=== PATIENT | male | born 1970 | race Caucasian/White ===

== ENCOUNTER 2019-06-21 10:48 | Outpatient (CLI) | payer SELFPAY ==
--- NOTE | 2019-06-21 10:58 | XR_ITS ---
WS: [id number] LATERAL LUMBAR SPINE: 3 view. Lateral radiographs are performed in upright neutral, flexion and extension to the patient's toleranc e. HISTORY: LUMBAR SPONDYLOSIS COMPARISON: 05/11/2018 Prior posterior lumbar fusion with interbody spacer at L3-4. No lucency around the screws or fracture involving the hardware. Mild disc space narrowing at L5-S1. With flexion and extension no instability. XR/XR lumbar spine f/e only [id number] IMPRESSION: 1. No lumbar spine instability. 2. Prior posterior lumbar fusion with interbody spacer at L3-4 with no complic ations.
== END 2019-06-21 10:49 | disposition home or self-care (01) ==
LOC: RAD 10:52
PROVIDERS: Family Provider Nurse Practitioner; PCP Nurse Practitioner; Visit Provider Neurological Surgery
DX: M47.816 Spondylosis without myelopathy or radiculopathy, lumbar region (principal); Z98.1 Arthrodesis status
CPT/HCPCS: 72120

== ENCOUNTER → 2019-07-17 09:39 | Outpatient (BNVA) | payer SELFPAY | PROVIDERS: Family Provider Nurse Practitioner; PCP Nurse Practitioner; Visit Provider Nurse Practitioner | DX: F41.9 Anxiety disorder, unspecified (principal); F32.9 Major depressive disorder, single episode, unspecified; E55.9 Vitamin D deficiency, unspecified | CPT/HCPCS: 80053; 81003 ==

== ENCOUNTER → 2019-10-12 11:39 | Outpatient (BNVA) | payer MEDICAID, SELFPAY | PROVIDERS: Family Provider Nurse Practitioner; PCP Nurse Practitioner; Visit Provider Nurse Practitioner | DX: R19.7 Diarrhea, unspecified (principal) | CPT/HCPCS: 87205; 87506 ==

== ENCOUNTER → 2019-10-15 11:17 | Outpatient (BNVA) | payer MEDICAID, SELFPAY | PROVIDERS: Family Provider Nurse Practitioner; PCP Nurse Practitioner; Visit Provider Nurse Practitioner | DX: R19.7 Diarrhea, unspecified (principal) | CPT/HCPCS: 80053; 85025 ==

== ENCOUNTER 2019-11-01 11:02 | Outpatient (CLI) | payer MEDICAID, SELFPAY ==
--- NOTE | 2019-11-01 10:30 | CT_ITS ---
WS: [id number] CT ABDOMEN PELVIS TECHNIQUE: Noncontrast CT of the abdomen and pelvis with coronal and sagittal reformatted images. CLINICAL INFORMATION: sever abdomen pain COMPARISON: August 05, 2016 DLP: 1162.[address] scans at [facility] use at least one of these dose optimization techniques: automat ed exposure control; mA and/or kV adjustment per patient size (includes targeted exams where dose is matched to clinical indication); or iterative reconstruction. FINDINGS: Noncontrast liver and gallbladder are normal. No evidence of small or large bowel obstruction. Scatte red stool in the colon. Incidental fat-containing umbilical hernia. No periaortic or retroperitoneal lymphadenopathy. No inguinal lymphadenopathy. Pedicle screw fixation L3-4 with interbody fusion. Hardware appears intact. Thoracic spinal stimulato r. Postoperative changes right nephrectomy are new since the prior examination. Nephrectomy bed is no rmal in appearance. Normal right adrenal gland. Normal noncontrast left kidney. Normal left adrenal g land. Normal spleen. Small splenule. Small esophageal hiatal hernia. Lung bases are well aerated. Mild pancreatic atrophy. Screw fixation across the femoral necks bilaterally extending into the acetabulum on the right right. Small scleroti c 5 mm lesion right ileum most consistent with benign bone island stable since 2017 CT/CT abdomen pelvis wo con [id number] IMPRESSION: 1. Postoperative changes right nephrectomy are new since the prior examination . Normal renal fossa. 2. Right adrenal gland is normal. 3. Left kidney is normal in appearance. No hydronephrosis. 4. No retroperitoneal or periotic lymphadenopathy. No inguinal lymphadenopathy . 5. No evidence of metastatic disease. 6. Postoperative changes pedicle screw fixation with interbody fusion at L3-4 new from previous.
== END 2019-11-01 11:03 | disposition home or self-care (01) ==
LOC: RADWPI 11:04
PROVIDERS: Family Provider Nurse Practitioner; PCP Nurse Practitioner; Visit Provider Nurse Practitioner
DX: R10.9 Unspecified abdominal pain (principal); Z90.5 Acquired absence of kidney; M43.26 Fusion of spine, lumbar region
CPT/HCPCS: 74176; 81000; 85025

== ENCOUNTER → 2020-05-13 09:23 | Outpatient (BNVA) | payer MEDICARE, MEDICAID, SELFPAY | PROVIDERS: Family Provider Nurse Practitioner; PCP Nurse Practitioner; Visit Provider Nurse Practitioner | DX: F41.9 Anxiety disorder, unspecified (principal); F32.9 Major depressive disorder, single episode, unspecified; I10 Essential (primary) hypertension | CPT/HCPCS: 80053; 81000 ==

== ENCOUNTER → 2020-06-14 17:55 | Outpatient (BNVA) | payer MEDICARE, MEDICAID, SELFPAY | PROVIDERS: Family Provider Nurse Practitioner; PCP Nurse Practitioner; Visit Provider Nurse Practitioner Family | DX: Z20.828 Contact with and (suspected) exposure to other viral communicable diseases (principal) | CPT/HCPCS: 87635 ==

== ENCOUNTER → 2020-07-14 08:34 | Outpatient (BNVA) | payer MEDICARE, MEDICAID, SELFPAY | PROVIDERS: Family Provider Nurse Practitioner; PCP Nurse Practitioner; Visit Provider Nurse Practitioner | DX: Z11.59 Encounter for screening for other viral diseases (principal); I10 Essential (primary) hypertension | CPT/HCPCS: 86705; 86706; 86709; 86803; 87340 ==

== ENCOUNTER 2020-09-11 08:31 | Outpatient (CLI) | payer MEDICARE, MEDICAID, SELFPAY ==
--- NOTE | 2020-09-11 08:45 | US_ITS ---
WS: [id number] ULTRASOUND RIGHT UPPER QUADRANT CLINICAL INFORMATION: R74.8 - Abnormal levels of other serum enzymes COMPARISON: None. FINDINGS: Liver Size: Upper limits of normal Craniocaudal length: 15.8 cm. Echogenicity: Normal. Surface nodularity: None. Mass (size and location): None. Bile ducts Intrahepatic ducts: Normal. Common bile duct diameter: 0.3 cm. Gallbladder Normal. Gallstones: None. Gallbladder sludge: None. Gallbladder wall thickening: None. Pericholecystic fluid: None. Sonographic Mckeon sign: Absent. Pancreas Normal as visualized. Abdominal aorta and IVC Visualized portions are normal. Ascites: None. US/US liver [id number] IMPRESSION: 1. Liver size upper limits of normal and otherwise normal. 2. Normal gallbladder. 3. Right kidney has been removed.
== END 2020-09-11 08:32 | disposition home or self-care (01) ==
PROVIDERS: PCP Nurse Practitioner; Visit Provider Nurse Practitioner
DX: R74.8 Abnormal levels of other serum enzymes (principal); Z90.5 Acquired absence of kidney
CPT/HCPCS: 76705

== ENCOUNTER → 2020-11-11 16:56 | Outpatient (BNVA) | payer MEDICARE, MEDICAID, SELFPAY | PROVIDERS: PCP Nurse Practitioner; Visit Provider Nurse Practitioner | DX: I10 Essential (primary) hypertension (principal); F41.9 Anxiety disorder, unspecified; F32.9 Major depressive disorder, single episode, unspecified | CPT/HCPCS: 80053; 80061 ==

== ENCOUNTER → 2021-02-25 09:24 | Outpatient (BNVA) | payer MEDICARE, MEDICAID, SELFPAY | PROVIDERS: PCP Nurse Practitioner; Visit Provider Nurse Practitioner | DX: Z00.00 Encounter for general adult medical examination without abnormal findings (principal); F41.9 Anxiety disorder, unspecified; F32.9 Major depressive disorder, single episode, unspecified | CPT/HCPCS: 81000 ==

== ENCOUNTER → 2021-05-07 16:05 | Outpatient (BNVA) | payer MEDICARE, MEDICAID, SELFPAY | PROVIDERS: PCP Nurse Practitioner; Visit Provider Nurse Practitioner | DX: F41.9 Anxiety disorder, unspecified (principal); F32.9 Major depressive disorder, single episode, unspecified; I10 Essential (primary) hypertension | CPT/HCPCS: 80053; 80061 ==

== ENCOUNTER → 2021-11-10 16:04 | Outpatient (BNVA) | payer MEDICARE, MEDICAID, SELFPAY | PROVIDERS: PCP Nurse Practitioner; Visit Provider Nurse Practitioner | DX: F41.9 Anxiety disorder, unspecified (principal); F32.9 Major depressive disorder, single episode, unspecified; I10 Essential (primary) hypertension; E55.9 Vitamin D deficiency, unspecified | CPT/HCPCS: 80053; 80061; 82306 ==

== ENCOUNTER → 2022-05-03 12:01 | Outpatient (BNVA) | payer MEDICARE, MEDICAID, SELFPAY | PROVIDERS: PCP Nurse Practitioner; Visit Provider Nurse Practitioner | DX: I10 Essential (primary) hypertension (principal); F41.9 Anxiety disorder, unspecified; F32.9 Major depressive disorder, single episode, unspecified | CPT/HCPCS: 80053 ==

== ENCOUNTER → 2022-11-09 10:39 | Outpatient (BNVA) | payer MEDICARE, MEDICAID, SELFPAY | PROVIDERS: PCP Nurse Practitioner; Visit Provider Nurse Practitioner | DX: I10 Essential (primary) hypertension (principal); F32.9 Major depressive disorder, single episode, unspecified; F41.9 Anxiety disorder, unspecified; E55.9 Vitamin D deficiency, unspecified; C64.1 Malignant neoplasm of right kidney, except renal pelvis | CPT/HCPCS: 80053; 80061; 82306; 84443 ==

== ENCOUNTER 2023-01-31 06:05 | Outpatient (CLI) | payer MEDICARE, MEDICAID, SELFPAY ==
--- NOTE | 2023-01-31 06:15 | US_ITS ---
WS: [id number] RENAL ULTRASOUND HISTORY: C64.1 - Malignant neoplasm of right kidney, except renal ... COMPARISON: None available. TECHNIQUE: 2-D and color Doppler imaging of the kidney submitted. Right kidney: Prior RIGHT nephrectomy. No mass or abnormality in the renal bed. Left kidney: 12.5 cm x 6.3 cm x 6.4 cm. Cortex: 1.9 cm Normal echogenicity with no hydronephrosis or mass. Aorta: Normal. Urinary Bladder: Normal distention. IMPRESSION: 1. Prior RIGHT nephrectomy. 2. Normal LEFT kidney.
== END 2023-01-31 06:06 | disposition home or self-care (01) ==
LOC: RAD 06:05
PROVIDERS: PCP Nurse Practitioner; Visit Provider Nurse Practitioner
DX: C64.1 Malignant neoplasm of right kidney, except renal pelvis (principal); I10 Essential (primary) hypertension; Z90.5 Acquired absence of kidney
CPT/HCPCS: 76770; 80053; 80061; 82306; 84443

== ENCOUNTER → 2023-02-09 10:58 | Outpatient (BNVA) | payer MEDICARE, MEDICAID, SELFPAY | PROVIDERS: PCP Nurse Practitioner; Visit Provider Nurse Practitioner | DX: I10 Essential (primary) hypertension (principal); F41.9 Anxiety disorder, unspecified; F32.9 Major depressive disorder, single episode, unspecified | CPT/HCPCS: 71046 ==

== ENCOUNTER → 2023-06-16 16:21 | Outpatient (BNVA) | payer BC, MEDICAID, SELFPAY | PROVIDERS: PCP Nurse Practitioner; Visit Provider Nurse Practitioner | DX: I10 Essential (primary) hypertension (principal); F41.9 Anxiety disorder, unspecified; F32.9 Major depressive disorder, single episode, unspecified; B35.1 Tinea unguium | CPT/HCPCS: 80053 ==

== ENCOUNTER → 2023-09-19 08:56 | Outpatient (BNVA) | payer MEDICARE, MEDICAID, SELFPAY | PROVIDERS: PCP Nurse Practitioner; Visit Provider Nurse Practitioner | DX: I10 Essential (primary) hypertension (principal); F41.9 Anxiety disorder, unspecified; F32.9 Major depressive disorder, single episode, unspecified; R73.9 Hyperglycemia, unspecified | CPT/HCPCS: 80053; 83036 ==

== ENCOUNTER → 2023-12-21 10:44 | Outpatient (BNVA) | payer MEDICARE, MEDICAID, SELFPAY | PROVIDERS: PCP Nurse Practitioner; Visit Provider Nurse Practitioner | DX: I10 Essential (primary) hypertension (principal); H02.9 Unspecified disorder of eyelid; Z12.83 Encounter for screening for malignant neoplasm of skin; Z12.5 Encounter for screening for malignant neoplasm of prostate; F41.9 Anxiety disorder, unspecified; F32.9 Major depressive disorder, single episode, unspecified | CPT/HCPCS: 80053; 80061; G0103 ==

== ENCOUNTER → 2024-02-07 07:58 | Outpatient (BNVA) | payer MEDICARE, SELFPAY | PROVIDERS: PCP Nurse Practitioner; Referring Provider Nurse Practitioner; Visit Provider Nurse Practitioner Family | DX: D48.5 Neoplasm of uncertain behavior of skin (principal); L82.1 Other seborrheic keratosis; L57.0 Actinic keratosis; L57.8 Other skin changes due to chronic exposure to nonionizing radiation; L82.0 Inflamed seborrheic keratosis; L81.4 Other melanin hyperpigmentation; D23.62 Other benign neoplasm of skin of left upper limb, including shoulder; D23.4 Other benign neoplasm of skin of scalp and neck; D23.72 Other benign neoplasm of skin of left lower limb, including hip | CPT/HCPCS: 11102; 17000; 17110; 99203 ==

== ENCOUNTER → 2024-06-19 08:18 | Outpatient (BNVA) | payer MEDICARE, SELFPAY | PROVIDERS: PCP Nurse Practitioner; Visit Provider Nurse Practitioner | DX: I10 Essential (primary) hypertension (principal); E55.9 Vitamin D deficiency, unspecified | CPT/HCPCS: 80053; 80061; 82306; 82310; 83970; 85025 ==

== ENCOUNTER 2024-07-02 07:30 | Outpatient (CLI) | payer MEDICARE, SELFPAY ==
--- NOTE | 2024-07-02 07:45 | USCV_ITS ---
Lelia Perez Age: 53 Gender: M : 1970 Exam Date: 07/02/2024 07:35 Ordering Phys: Javid Belle Technologist: SANIYA Exam Location: [facility] [place] Indication: hypertension. rt sided nephrectomy Aortic Velocity @ SMA (cm/s) 76.3 RIGHT KIDNEY LEFT KIDNEY Velocity (cm/s) Velocity (cm/s) Sys/Martines Sys/Martines Resistive Index Resistive Index / Proximal Renal Artery 80.1 / 35.8 0.55 / Mid Renal Artery 49.3 / 17.8 0.64 / Distal Renal Artery 82.6 / 27.1 0.67 / Hilar 52.9 / 21.8 0.59 / Upper Pole 16.2 / 6.8 0.58 / Mid Pole 26.8 / 8.2 0.70 / Lower Pole 22.5 / 10.2 0.55 Renal Aortic Ratio 1.08 Accleration Time (sec) Hilar 0.08 Upper Pole 0.22 Mid Pole 0.16 Lower Pole 0.20 Kidney Length (cm) 10.9 CONCLUSIONS Right nephrectomy No significant LEFT renal artery stenosis. LEFT kidney measures 10.9 x 6.5 x 6.4xm. No hydronephrosis Gio Villegas MD (Electronically Signed) Final Date: 02 July 2024 10:16 S
== END 2024-07-02 07:31 | disposition home or self-care (01) ==
LOC: RAD 07:31
PROVIDERS: PCP Nurse Practitioner; Visit Provider Nurse Practitioner
DX: I10 Essential (primary) hypertension (principal); N18.2 Chronic kidney disease, stage 2 (mild); C64.1 Malignant neoplasm of right kidney, except renal pelvis; Z90.5 Acquired absence of kidney
CPT/HCPCS: 80053; 80061; 82306; 82310; 83970; 85025; 93975

== ENCOUNTER → 2024-12-04 09:24 | Outpatient (BNVA) | payer BC, SELFPAY | PROVIDERS: PCP Nurse Practitioner; Visit Provider Nurse Practitioner | DX: I10 Essential (primary) hypertension (principal) | CPT/HCPCS: 80053; 80061 ==

== ENCOUNTER → 2025-02-26 09:02 | Outpatient (BNVA) | payer BC, SELFPAY | PROVIDERS: PCP Nurse Practitioner; Visit Provider Nurse Practitioner | DX: Z12.5 Encounter for screening for malignant neoplasm of prostate (principal) | CPT/HCPCS: 80048; G0103 ==